=== PATIENT | male | born 1965 | race Caucasian/White ===

== ENCOUNTER 2019-01-18 07:49 | Day surgery (SDC) | payer OTHER ==
[~2019-01-18] VITALS: Ht 185.4 cm; Wt 98.2 kg
[~2019-01-18 07:49] MED LIST: XARELTO20 MG PO
--- NOTE | 2019-01-18 08:48 | NUR ---
01/18/19 0848 Iris Steele HR [id number], DR MAYO NOTIFIED AND EKG IS ORDERED AND PREFORMED.
== END 2019-01-18 11:25 | disposition home or self-care (01) ==
LOC: ORSCSDS 07:49
PROVIDERS: Internal Medicine Gastroenterology
PROC: 0DBN8ZX Excision of Sigmoid Colon, Via Natural or Artificial Opening Endoscopic, Diagnostic (ICD-10-PCS; principal; 2019-01-18 09:00)
PROC: 0DBK8ZX Excision of Ascending Colon, Via Natural or Artificial Opening Endoscopic, Diagnostic (ICD-10-PCS; principal; 2019-01-18 09:00)
PROC: 0DBP8ZX Excision of Rectum, Via Natural or Artificial Opening Endoscopic, Diagnostic (ICD-10-PCS; principal; 2019-01-18 09:00)
PROC: 0DBM8ZX Excision of Descending Colon, Via Natural or Artificial Opening Endoscopic, Diagnostic (ICD-10-PCS; principal; 2019-01-18 09:00)
PROC: 0DBL8ZX Excision of Transverse Colon, Via Natural or Artificial Opening Endoscopic, Diagnostic (ICD-10-PCS; principal; 2019-01-18 09:00)
PROC: 0DBH8ZX Excision of Cecum, Via Natural or Artificial Opening Endoscopic, Diagnostic (ICD-10-PCS; principal; 2019-01-18 09:00)
DX: Z12.11 Encounter for screening for malignant neoplasm of colon (principal); D12.3 Benign neoplasm of transverse colon; D12.2 Benign neoplasm of ascending colon; D12.0 Benign neoplasm of cecum; K62.1 Rectal polyp; K63.5 Polyp of colon; K64.8 Other hemorrhoids; I81 Portal vein thrombosis; Z79.899 Other long term (current) drug therapy
CPT/HCPCS: 88305; 93005; 93010; J2704; J7120

== ENCOUNTER 2020-01-03 11:04 | Day surgery (SDC) | payer OTHER ==
[~2020-01-03] VITALS: Ht 182.9 cm; Wt 101.0 kg
--- NOTE | 2020-01-03 13:02 | NUR ---
01/03/20 1302 Akua Romero 21ML NORMAL SALINE USED TO ELEVATE TRANSVERSE COLON POLYPS
== END 2020-01-03 13:31 | disposition home or self-care (01) ==
LOC: ORSCSDS 11:04
PROVIDERS: Internal Medicine Gastroenterology
PROC: 0DBN8ZX Excision of Sigmoid Colon, Via Natural or Artificial Opening Endoscopic, Diagnostic (ICD-10-PCS; principal; 2020-01-03 12:15)
PROC: 0DBL8ZX Excision of Transverse Colon, Via Natural or Artificial Opening Endoscopic, Diagnostic (ICD-10-PCS; principal; 2020-01-03 12:15)
PROC: 0DBP8ZX Excision of Rectum, Via Natural or Artificial Opening Endoscopic, Diagnostic (ICD-10-PCS; principal; 2020-01-03 12:15)
DX: Z86.010 Personal history of colon polyps (principal); D12.3 Benign neoplasm of transverse colon; D12.5 Benign neoplasm of sigmoid colon; K62.1 Rectal polyp; I81 Portal vein thrombosis; Z79.01 Long term (current) use of anticoagulants
CPT/HCPCS: 88305; J2405; J2704; J7120

== ENCOUNTER 2020-02-27 14:50 | Day surgery (SDC) | payer OTHER ==
[~2020-02-27] VITALS: Ht 185.4 cm; Wt 101.5 kg
--- NOTE | 2020-02-27 16:36 | NUR ---
02/27/20 1636 Rosio Pimentel PT RESTING COMFORTABLY IN ROOM WITH EYES CLOSED; DENIES NEEDS AT THIS TIME, CALL LIGHT WITHIN REACH. PT VERBALIZES UNDERSTANDING OF DELAY, VERY KIND & CALM.
--- NOTE | 2020-02-27 20:24 | NUR ---
02/27/202023 Rosio PimentelKelly 28ML NORMAL SALINE INJECTED THROUGHOUT PROCEDURE FOR POLYPECTOMIES. 10ML ELEVIEW TOTAL USED EMR FOR POLPECTOMIES.
== END 2020-02-27 20:20 | disposition home or self-care (01) ==
LOC: ORSCSDS 14:50
PROVIDERS: Internal Medicine Gastroenterology
PROC: 0DBN8ZX Excision of Sigmoid Colon, Via Natural or Artificial Opening Endoscopic, Diagnostic (ICD-10-PCS; principal; 2020-02-27 15:00)
PROC: 0DBP8ZX Excision of Rectum, Via Natural or Artificial Opening Endoscopic, Diagnostic (ICD-10-PCS; principal; 2020-02-27 15:00)
PROC: 0DBM8ZX Excision of Descending Colon, Via Natural or Artificial Opening Endoscopic, Diagnostic (ICD-10-PCS; principal; 2020-02-27 15:00)
PROC: 0DBL8ZX Excision of Transverse Colon, Via Natural or Artificial Opening Endoscopic, Diagnostic (ICD-10-PCS; principal; 2020-02-27 15:00)
DX: Z86.010 Personal history of colon polyps (principal); D12.3 Benign neoplasm of transverse colon; D12.4 Benign neoplasm of descending colon; D12.5 Benign neoplasm of sigmoid colon; K62.1 Rectal polyp; K63.5 Polyp of colon; K57.30 Diverticulosis of large intestine without perforation or abscess without bleeding; K64.8 Other hemorrhoids; I81 Portal vein thrombosis; Z79.899 Other long term (current) drug therapy
CPT/HCPCS: 88305; J2405; J2704; J7120

== ENCOUNTER 2020-09-11 07:41 | Day surgery (SDC) | payer OTHER ==
[~2020-09-11] VITALS: Ht 185.4 cm; Wt 97.3 kg
== END 2020-09-11 11:45 | disposition home or self-care (01) ==
LOC: ORSCSDS 07:41
PROVIDERS: Surgery
PROC: 0YUA0JZ Supplement Bilateral Inguinal Region with Synthetic Substitute, Open Approach (ICD-10-PCS; principal; 2020-09-11 08:45)
DX: K40.20 Bilateral inguinal hernia, without obstruction or gangrene, not specified as recurrent (principal); Z86.718 Personal history of other venous thrombosis and embolism; Z79.01 Long term (current) use of anticoagulants
CPT/HCPCS: C1781; J0690; J1100; J1885; J2250; J2370; J2405; J2704; J3010; J7120

== ENCOUNTER 2020-09-18 11:51 | Day surgery (SDC) | payer OTHER ==
[~2020-09-18] VITALS: Ht 185.4 cm; Wt 95.4 kg
[2020-09-18] MEDS ORDERED: HYDACE10B PO (12:19)
--- NOTE | 2020-09-18 14:24 | NUR ---
09/18/20 1424 Nanci Estrada 13ML NACL USED FOR MULTIPLE POLYP REMOVALS.
== END 2020-09-18 15:00 | disposition home or self-care (01) ==
LOC: ORSCSDS 11:51
PROVIDERS: Internal Medicine Gastroenterology
PROC: 0DBN8ZX Excision of Sigmoid Colon, Via Natural or Artificial Opening Endoscopic, Diagnostic (ICD-10-PCS; principal; 2020-09-18 13:00)
PROC: 0DBL8ZX Excision of Transverse Colon, Via Natural or Artificial Opening Endoscopic, Diagnostic (ICD-10-PCS; principal; 2020-09-18 13:00)
DX: D12.6 Benign neoplasm of colon, unspecified (principal); Z86.010 Personal history of colon polyps; D12.3 Benign neoplasm of transverse colon; D12.5 Benign neoplasm of sigmoid colon; K57.30 Diverticulosis of large intestine without perforation or abscess without bleeding; K64.8 Other hemorrhoids; I81 Portal vein thrombosis; Z79.01 Long term (current) use of anticoagulants
CPT/HCPCS: 88305; J0330; J0461; J2250; J2405; J2704; J7120

== ENCOUNTER → 2021-04-14 | Outpatient (CLI) | payer OTHER ==
[~2021-04-14] MED LIST changes: +HYDACE10B PO
== END | disposition home or self-care (01) ==
LOC: LAB SHORT 11:16
DX: L72.9 Follicular cyst of the skin and subcutaneous tissue, unspecified (principal)
CPT/HCPCS: 88304

== ENCOUNTER 2023-09-06 09:04 | Day surgery (SDC) | payer OTHER ==
[~2023-09-06] VITALS: Ht 185.4 cm; Wt 98.6 kg
[~2023-09-06 09:04] MED LIST changes: +Lactated Ringer's 1,000 ML IV ONE; +propofoL 50 ML IV ONE
[2023-09-06] MEDS ORDERED: Glycopyrrolate 0.2 MG/ML 1MLVIAL ONE (10:17)
[2023-09-06] MEDS ORDERED: Lactated Ringer's 1,000 ML IV ONE ×2 (10:17→11:13)
[2023-09-06] MEDS ORDERED: propofoL 50 ML IV ONE (11:43)
[2023-09-06 12:01] VITALS: BP 107/79
== END 2023-09-06 12:18 | disposition home or self-care (01) ==
LOC: ORSCSDS 09:04
PROVIDERS: Internal Medicine Gastroenterology
PROC: 0DBL8ZX Excision of Transverse Colon, Via Natural or Artificial Opening Endoscopic, Diagnostic (ICD-10-PCS; principal; 2023-09-06 10:15)
PROC: 0DBM8ZX Excision of Descending Colon, Via Natural or Artificial Opening Endoscopic, Diagnostic (ICD-10-PCS; principal; 2023-09-06 10:15)
PROC: 0DBP8ZX Excision of Rectum, Via Natural or Artificial Opening Endoscopic, Diagnostic (ICD-10-PCS; principal; 2023-09-06 10:15)
DX: Z12.11 Encounter for screening for malignant neoplasm of colon (principal); D12.3 Benign neoplasm of transverse colon; D12.4 Benign neoplasm of descending colon; D12.8 Benign neoplasm of rectum; K57.30 Diverticulosis of large intestine without perforation or abscess without bleeding; K64.4 Residual hemorrhoidal skin tags; Z86.010 Personal history of colon polyps
CPT/HCPCS: 88305; J2704; J7120